=== PATIENT | male | born 1975 | race Caucasian/White ===

== ENCOUNTER 2018-03-21 19:55 | Emergency (ER) | payer BC, OTHER ==
[2018-03-21] MEDS ORDERED: Hydromorphone 1 mg/ml Ampule ONE ×2 (20:05→21:28)
[2018-03-21] MEDS ORDERED: Zofran 4 MG/2 ML VIAL ONE (20:05)
[2018-03-21] MEDS ORDERED: Zofran 4 MG/2 ML VIAL IV ONE (20:17)
[2018-03-21] MEDS ORDERED: Hydromorphone 1 mg/ml Ampule IV ONE ×2 (20:17→21:32)
[2018-03-21] MEDS ORDERED: Adacel Vial IM ONE ×2 (20:17→20:26)
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
[2018-03-21] MEDS ORDERED: ROCEPHIN 1 Gm-D5w 50 ml Bag** 1 G/50 ML IVPB IV STA (20:40)
[2018-03-21] MEDS ORDERED: ROCEPHIN 1 Gm-D5w 50 ml Bag** 0 G/0 ML IVPB IV ONE (20:49)
[2018-03-21] MEDS ORDERED: ROCEPHIN 1 Gm-D5w 50 ml Bag** 1 G/50 ML IVPB IV ONE (21:28)
[2018-03-21 21:43] VITALS: BP 118/72; O2SAT 96
[2018-03-21 22:01] VITALS: PULSE 75
[2018-03-21] MEDS ORDERED: PERCOCET TABLET 5/325MG PO STA (22:08)
[2018-03-21] MEDS ORDERED: PERCOCET TABLET 5/325MG ONE (22:12)
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
[2018-03-21] MEDS ORDERED: BACIGUENT PACKET ONE (22:50)
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
== END 2018-03-21 22:19 | disposition home or self-care (01) ==
LOC: ED 19:55
PROC: 0HQ0XZZ Repair Scalp Skin, External Approach (ICD-10-PCS; principal; 2018-03-21)
DX: S01.01XA Laceration without foreign body of scalp, initial encounter (principal); V27.4XXA Motorcycle driver injured in collision with fixed or stationary object in traffic accident, initial encounter; Y93.9 Activity, unspecified; R51 Headache; M25.511 Pain in right shoulder; M54.2 Cervicalgia; M62.838 Other muscle spasm; R11.2 Nausea with vomiting, unspecified; H93.13 Tinnitus, bilateral
CPT/HCPCS: 12005; 36000; 70450; 71046; 72125; 73030; 90471; 90715; 96365; 96374; 96375; 96376; 99285; J0696; J1170; J2405; A9270-GY

== ENCOUNTER 2018-03-23 09:17 | Emergency (ER) | payer BC ==
[2018-03-23 09:35] VITALS: BP 128/83; PULSE 78; O2SAT 99
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
== END 2018-03-23 10:04 | disposition home or self-care (01) ==
LOC: ED 09:17
DX: Z51.89 Encounter for other specified aftercare (principal)
CPT/HCPCS: 99283

== ENCOUNTER 2024-04-19 09:02 | Day surgery (SDC) | payer OTHER ==
--- NOTE | 2024-04-18 21:55 | HP ---
HISTORY AND PHYSICAL HISTORY OF PRESENT ILLNESS: Nodule or cyst, neck under right mandible. No drainage, enlarging, not much pain. PAST SURGICAL HISTORY: Denies any prior surgery. PAST MEDICAL HISTORY: Denies any chronic illness. FAMILY HISTORY: Heart disease. SOCIAL HISTORY: He is a half pack a week smoker. He denies alcohol use. MEDICATIONS: None on a regular basis. ALLERGIES: Penicillin. REVIEW OF SYSTEMS: Twelve systems reviewed. No chest pain or palpitations. Other systems negative or noncontributory as above and per preadmission questionnaire. PHYSICAL EXAMINATION: GENERAL: Height 5 feet 11 inches. BMI 29.9. No acute distress. HEENT: Sclerae nonicteric. NECK: No JVD. Right neck under mandible with question cyst or nodule. CHEST: Equal excursion, nonlabored breathing. CARDIOVASCULAR: Regular rate and rhythm. ABDOMEN: Soft. EXTREMITIES: No cyanosis or edema. NEUROLOGIC: Alert and oriented, moving all extremities symmetrically. PSYCHIATRIC: Appropriate mood and affect. SKIN: Dry. IMPRESSION: Enlarging cyst or nodule on right neck. Offered excision. Risk of bleeding, infection possibly requiring packing; risk of hematoma, seroma, aches, pains; risk of burning or numbness; risk of anesthesia, DVT, PE, pneumonia; risk of enlarging mandibular area scar formation or injury; risks of drooped lip or inability for lip to rise on that side, possible long-term. He understands, accepts risks. We will proceed with outpatient under general anesthetic biopsy right neck cyst or nodule as an outpatient excisional biopsy.
[2024-04-19] MEDS ORDERED: CEFAZOLIN 2 GM/100 ML NaCl 2 GM/100 ML IVPB IV ONE (09:29)
[2024-04-19] MEDS: CEFAZOLIN 2 GM/100 ML NaCl 2 GM/100 ML IVPB IV SCH (09:34)
[2024-04-19] MEDS: Lactated Ringers 1,000 ML IV SCH (09:34)
[2024-04-19 09:44] VITALS: RESP 16
[2024-04-19] MEDS ORDERED: Sensorcaine 0.25% 10 ML ONE (10:09)
[2024-04-19] MEDS ORDERED: Lactated Ringers 1,000 ML IV ONE (10:10)
[2024-04-19] MEDS ORDERED: SUBLIMAZE 100 MCG/2 ML ONE ×3 (11:06→13:12)
[2024-04-19] MEDS ORDERED: DIPRIVAN 200 MG/20 ML IV ONE (11:06)
[2024-04-19] MEDS ORDERED: ROCURONIUM BROMIDE IV ONE (11:06)
[2024-04-19] MEDS ORDERED: Versed 2 MG/2 ML Injection ONE (11:06)
[2024-04-19] MEDS ORDERED: BRIDION 200MG/2ML IV ONE (11:52)
[2024-04-19 13:56] VITALS: BP 149/73; PULSE 66; TEMP 97; O2SAT 97
--- NOTE | 2024-04-21 10:59 | OP ---
SURGERY DATE/TIME: 04/19/2024 [id number] PREOPERATIVE DIAGNOSIS: Enlarging cyst, right knee; enlarging subcutaneous mass, left flank. POSTOPERATIVE DIAGNOSIS: Enlarging cyst, right knee; enlarging subcutaneous mass, left flank. PROCEDURE: 1) Excisional biopsy, approximately 1.4 cm cyst right neck. 2) Excisional biopsy, approximately 5 cm subcutaneous lipomatous density left flank. SURGEON: Usama Fonseca MD ANESTHESIA: General. ESTIMATED BLOOD LOSS: Minimal. INDICATIONS: As above. Consent was obtained. DESCRIPTION OF PROCEDURE AND FINDINGS: The site was confirmed and marked in the preop holding area with the patient. General anesthesia was induced. Prepped and draped in the usual sterile fashion. After official time-out no disagreement in the planned procedure. The one on the neck seemed to be just a little bit below the jawline on exam. It was elected to make a transverse incision and take a small sliver of skin. Dissection carried directly down onto this with some needlepoint, pinpoint cautery at the very lowest setting. Slowly, carefully dissected out the cyst measuring about 1.4 cm in vevo and was passed off. Good hemostasis noted. There had been no visible jumping of the anterior lower muscles during this time and stayed directly on the cyst wall itself. Subcu closed with 4-0 Vicryl. Skin closed with 5-0 Prolene in running subcuticular fashion. Steri-Strips, sterile dressing applied. Marcaine 0.25% local injected around the area. The patient tolerated the procedure well. Attention then turned. Gloves and instruments were changed. Palpable area on the left deep in the subcu. Dissection was carried down circumferentially around this thickened lipomatous density. That was thicker than the more normal subcu fat around the area. Dissected down off the underlying fascia and musculature. Passed off. Measured about 5 cm in size. Good hemostasis noted. The wound was irrigated out. Subcu closed right down to the level of fascia with interrupted 3-0 Vicryl. Superficially closed with 3-0 Vicryl. Skin closed with 4-0 Vicryl. Steri-Strips, sterile dressing applied. Marcaine 0.25% local injected around the area. The patient tolerated the procedure well. There were no immediate complications. I went to look for the family in the waiting area.
== END 2024-04-19 13:55 | disposition home or self-care (01) ==
LOC: SDC 09:02
PROVIDERS: ATTEND Surgery
DX: L72.11 Pilar cyst (principal); D17.1 Benign lipomatous neoplasm of skin and subcutaneous tissue of trunk; M71.21 Synovial cyst of popliteal space [Baker], right knee
CPT/HCPCS: J0690; J2250; J2704; J3010